=== PATIENT | female | born 1955 | race Caucasian/White ===

== ENCOUNTER 2024-04-05 13:21 | Emergency (ER) | payer MEDICARE, MEDICAID ==
[~2024-04-05] VITALS: Ht 162.6 cm; Wt 50.0 kg
[2024-04-05 14:54] VITALS: TEMP 98
[2024-04-05] MEDS ORDERED: INSULIN REGULAR, HUMAN 100 UNITS/ML SQ ONE (15:00)
[2024-04-05] MEDS: INSULIN REGULAR, HUMAN 100 UNITS/ML SQ ONE (15:04)
[2024-04-05] MEDS: LORazepam 2 MG TABLET PO ONE (15:04)
[2024-04-05 15:11] LABS: GLUCOMETER DEV NAME(LOC) ER.7; GLUCOSE,POINT OF CARE 262 MG/DL (70-110)
[2024-04-05 16:37] VITALS: BP 113/65; PULSE 63; RESP 16
== END 2024-04-05 17:12 | disposition home or self-care (01) ==
LOC: EMS 13:24
DX: F25.0 Schizoaffective disorder, bipolar type (principal); E11.65 Type 2 diabetes mellitus with hyperglycemia; E44.0 Moderate protein-calorie malnutrition; I10 Essential (primary) hypertension; F41.9 Anxiety disorder, unspecified; F32.A Depression, unspecified; J44.9 Chronic obstructive pulmonary disease, unspecified; K21.9 Gastro-esophageal reflux disease without esophagitis; Z85.3 Personal history of malignant neoplasm of breast
CPT/HCPCS: 99284; 82962; J1815